=== PATIENT | female | born 1935 | race Caucasian/White ===

== ENCOUNTER 2017-10-05 20:14 | Emergency (ER) | payer OTHER, MEDICARE ==
[~2017-10-05] VITALS: Ht 165.1 cm; Wt 54.0 kg
[2017-10-05 21:26] VITALS: BP 168/104
== END 2017-10-05 21:27 | disposition home or self-care (01) ==
LOC: EME 20:14
DX: I83.892 Varicose veins of left lower extremity with other complications (principal)
CPT/HCPCS: 99281; 99284